=== PATIENT | female | born 1980 | race Caucasian/White ===

== ENCOUNTER 2016-12-17 18:16 | Emergency (ER) | payer MEDICAID ==
[2016-12-17 18:20] VITALS: BP 158/123; PULSE 100; RESP 20; TEMP 98.1; O2SAT 95
[2016-12-17] MEDS ORDERED: NAPROXEN 500 MG TAB PO ONE (19:15)
--- NOTE | 2016-12-17 19:16 | PD ---
HPI Chief Complaint: Injury Time Seen by Provider: 19:14 Travel History International Travel<30 days: No Contact w/Intl Traveler<30days: No Traveled to known affect area: No History of Present Illness HPI Patient comes in for evaluation of right wrist and hand pain after falling from her Van. Patient states she was in [place] when she was tightening up luggage on her van when she fell landing with her weight on her right hand and wrist. Patient states that there was an off duty auto brake technician who wrapped it for her and she drove to [place]. Patient denies doing anything else for this. Patient states pain is primarily over the radial aspect of her right wrist and radiates proximally and distally. Pain is worse with movement and palpation. Pain is aching throbbing like in nature. Patient reports that the wrap was helping with her pain. [facility] Past Medical History Medical History: Denies Significant Hx Social History Alcohol Use: No Tobacco Use: Yes Substance Use: No Allergies-Medications (Allergen,Severity, Reaction): Coded Allergies: Medrol (Verified Allergy, Severe, 12/17/16) Reported Meds & Prescriptions Reported Meds & Active Scripts Active Naprosyn (Naproxen) 500 Mg Tab 500 Mg PO Q12HR PRN Review of Systems Except as stated in HPI: all other systems reviewed are Neg Physical Exam Narrative GENERAL: Well-developed, overly nourished, in no acute distress, and non-ill appearing. SKIN: Warm and dry. HEAD: Atraumatic. Normocephalic. EYES: Pupils equal and round. EOMI. No scleral icterus. No injection or drainage. ENT: No nasal bleeding or discharge. Mucous membranes pink and moist. NECK: Trachea midline. Supple. No nuclear rigidity. CARDIOVASCULAR: Radial pulses 2+, tach, and equal bilaterally. Capillary refill less than 2 seconds. RESPIRATORY: No accessory muscle use. No respiratory distress. MUSCULOSKELETAL: No obvious deformities. No clubbing. No cyanosis. No edema. Full range of motion. Wrist: FROM and equal BL with passive flexion, extension, and pronation/supination. Capillary refill less than 2 seconds distal to injury and equal BL. FROM distal to injury and equal BL. Strength distal to injury equal BL. NV intact distal to injury. Flexion and extension of thumb equal BL. Equal strength and movement with abduction/adductions of BL fingers. 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 No tenderness to the anatomical snuffbox. Patient reports tenderness to palpation of the radial aspect of right wrist. NEUROLOGICAL: Awake and alert. No obvious cranial nerve deficits. Motor grossly within normal limits. Normal speech. PSYCHIATRIC: Appropriate mood and affect; insight and judgment normal. Data Data Last Documented VS Vital Signs Date Time Temp Pulse Resp B/P Pulse Ox O2 Delivery O2 Flow Rate FiO2 12/17/16 18:20 98.1 100 20 158/123 95 Room Air Orders Wrist, Complete ([id number]) (12/17/16 ) Hand, Complete ([id number]) (12/17/16 ) Naproxen (Naprosyn) (12/17/16 19:15) Ice/Cold Pack (12/17/16 19:13) Splint Or Brace Apply/Monitor (12/17/16 19:48) MDM Medical Decision Making Medical Screen Exam Complete: Yes Emergency Medical Condition: Yes Differential Diagnosis Fracture, sprain, contusion, other Narrative Course There is no clinical evidence for fracture. There is no clinical evidence to suspect bony injury by exam. Radiographic examination revealed no fracture seen at this time. No obvious ligamental injury or internal derangement is noted at this time. The distal extremity appears neurovascularly intact, without evidence of neurovascular injury nor compartment syndrome. Tendon exam also was intact. The effected limb was splinted. The patient was discharged on pain medication along with sprain and splint care instructions and given warnings for vascular compromise. The patient is to follow up with Orthopedics, hand surgeon, or primary care doctor. The patient agrees with plan. Patient in no obvious distress upon re-evaluation. All pertinent Radiology result(s) discussed with patient. Patient was asked if they wanted to speak to my attending, which the patient did not wish to do at this time. Any questions/ concerns in reference to patient diagnosis/condition discussed and clarified prior to patient's discharge. Reinforced sheer importance of close follow up with patient's primary physician or primary care clinic. Instructed patient to return to ED immediately, if symptoms return/worsen. Pt showed understanding of above instructions. Further instructions and recommendations were detailed in discharge paperwork. Pt ambulated without difficulty out of ED at discharge. Diagnosis Primary Impression: Right wrist sprain Qualified Code: S63.501A - Right wrist sprain, initial encounter Referrals: Katerina No MD, Todd A. MD Patient Instructions: General Instructions, Splint Care (DC), Wrist Sprain (ED) Additional Instructions: Follow-up with your primary care physician, orthopedics, or hand in 3-5 days for reevaluation. Apply ice to affected area 20 minutes per hour as needed for pain. Take all medication as prescribed. Return to the emergency department if symptoms get worse. Med/Other Pt SpecificInfo: Prescription(s) given Scripts Naproxen (Naprosyn)500 Mg [id number] Mg PO Q12HR PRN (PAIN SCALE 1 TO 10) #14 TAB Ref 0 Prov:Greg Dennis MD 12/17/16 Disposition: 01 DISCHARGE HOME Condition: Stable Jose Alfredo Rendon Dec 17, 2016 19:16
--- NOTE | 2016-12-17 19:41 | RADRPT ---
EXAM DATE/TIME: 12/17/2016 19:25 [facility] COMPARISON: No previous studies available for comparison. INDICATIONS : Right hand pain after felling off her van. MEDICAL HISTORY : None. SURGICAL HISTORY : None. ENCOUNTER: Initial ACUITY: 1 day PAIN SCORE: 10/10 LOCATION: Right hand. FINDINGS: Three view examination of the right hand demonstrates no soft tissue swelling, dislocation, or fractu re. The carpal bones appear intact. The interphalangeal and metacarpophalangeal joints are intact. Bony mineralization is normal. CONCLUSION: Unremarkable examination of the right hand. Fitz Sung MD on December 17, 2016 at 19:39 Board Certified Radiologist. This report was verified electronically.
--- NOTE | 2016-12-17 19:42 | RADRPT ---
EXAM DATE/TIME: 12/17/2016 19:25 [facility] COMPARISON: No previous studies available for comparison. INDICATIONS : Right wrist pain after patient fell off her van. MEDICAL HISTORY : None. SURGICAL HISTORY : None. ENCOUNTER: Initial ACUITY: 1 day PAIN SCORE: 10/10 LOCATION: Right wrist. FINDINGS: Three view examination of the right wrist demonstrates no soft tissue swelling, dislocation, or fract ure. The carpal bones are in normal alignment. The joint spaces are maintained. Bony mineralizatio n is normal. CONCLUSION: Normal examination for a patient of this age. Fitz Sung MD on December 17, 2016 at 19:40 Board Certified Radiologist. This report was verified electronically.
[2016-12-17] MEDS ORDERED: NAPR500 PO (19:51)
== END 2016-12-17 20:12 | disposition home or self-care (01) ==
LOC: NEPB 18:16
DX: S63.501A Unspecified sprain of right wrist, initial encounter (principal); M79.641 Pain in right hand; Z72.0 Tobacco use; W17.89XA Other fall from one level to another, initial encounter
CPT/HCPCS: 73110; 73130; 99283; L3908